=== PATIENT | female | born 1985 | race Two or more races ===

== ENCOUNTER → 2017-01-24 | Outpatient (CLI) | payer BC ==
--- NOTE | 2017-01-25 08:54 | MRI ---
MRI left knee without contrast Indication: Left knee pain. Previous ACL reconstruction (February,) Comparison: None Technique: Multiplanar, multi sequence MR images of the left knee were obtained without contrast. Findings: Postsurgical changes of previous ACL reconstruction noted. The ACL graft demonstrates dori l positioning and signal characteristics. No abnormal soft tissue density adjacent to the ACL graft a ppreciated. There is no evidence for acute fracture or subluxation. Articular surfaces are intact. No meniscal tear identified. The PCL, MCL, major lateral stabilizers, and extensor mechanism are intact . No joint effusion or popliteal cyst. Impression: Satisfactory appearance of the ACL graft. No evidence for acute internal derangement of the left knee . Reported By:
== END ==
LOC: RAD 10:17
PROVIDERS: ATTEND Nurse Practitioner Family
DX: M25.562 Pain in left knee (principal)
CPT/HCPCS: 73721